=== PATIENT | male | born 1990 | race Caucasian/White ===

== ENCOUNTER 2023-04-21 21:11 | Emergency (ER) | payer SELFPAY ==
[~2023-04-21] VITALS: Ht 165.1 cm; Wt 81.0 kg
[2023-04-21 21:21] VITALS: BP 124/84; PULSE 88; RESP 16; TEMP 98.3; O2SAT 98
== END 2023-04-22 01:58 | disposition left against medical advice (07) ==
LOC: ER 21:11
DX: R10.9 Unspecified abdominal pain (principal)
CPT/HCPCS: 99281